=== PATIENT | female | born 1965 | race Caucasian/White ===

== ENCOUNTER 2016-03-19 11:31 | Outpatient (CLI) | payer OTHER | END 2016-03-19 20:05 | disposition home or self-care (01) | LOC: MRD 11:31 | PROVIDERS: ATTEND Family Medicine | DX: M25.521 Pain in right elbow (principal) ==

== ENCOUNTER 2016-05-17 01:35 | Emergency (ER) | payer OTHER ==
[~2016-05-17] VITALS: Ht 154.9 cm; Wt 54.4 kg
[2016-05-17 01:47] VITALS: BP 132/81
--- NOTE | 2016-05-17 02:31 | NUR ---
PT TAKEN TO [facility] FROM [facility]
--- NOTE | 2016-05-17 02:45 | NUR ---
PT RETURN FROM XRAY
--- NOTE | 2016-05-17 03:40 | NUR ---
PT TAKEN TO BED 4
--- NOTE | 2016-05-17 03:40 | NUR ---
PATIENT PRESENTS TO ED WITH CHEST PAIN X 3 DAYS . PT DENIES N/V/D; SKIN IS PINK/WARM/DRY; AAOX4 WITH EVEN AND STEADY GAIT; LUNGS CLEAR BL; HR EVEN AND REGULAR; PT DENIES ANY FEVER, SOB, OR COUGH AT THIS TIME; PATIENT STATES PAIN OF 3/10 AT THIS TIME; VSS; PATIENT POSITIONED FOR COMFORT; HOB ELEVATED; BEDRAILS UP X2; BED DOWN. ER MD MADE AWARE OF PT STATUS.
--- NOTE | 2016-05-17 04:00 | NUR ---
Dr. Zacarias evaluating patient at bedside.
[2016-05-17] MEDS ORDERED: KETOROLAC 60 MG/2 ML VIAL IM ONE (04:05)
[2016-05-17 04:59] VITALS: BP 127/79
--- NOTE | 2016-05-17 04:59 | NUR ---
Patient discharged with v/s stable. Written and verbal after care instructions given and explained. Patient alert, oriented and verbalized understanding of instructions. Ambulatory with steady gait. All questions addressed prior to discharge. ID band removed. Patient advised to follow up with PMD. Rx of TRAMADOL 50MG given. Patient educated on indication of medication including possible reaction and side effects. Opportunity to ask questions provided and answered.
== END 2016-05-17 04:59 | disposition home or self-care (01) ==
LOC: MED 01:35 → EEVIPCON 01:35 → MED 04:59
DX: R07.89 Other chest pain (principal); R03.0 Elevated blood-pressure reading, without diagnosis of hypertension
CPT/HCPCS: 71010; 93005; 96372; 99284; J1885